=== PATIENT | male | born 1995 | race African-American/Black ===

== ENCOUNTER 2019-09-25 17:40 | Emergency (ER) | payer SELFPAY ==
[~2019-09-25] VITALS: Ht 188 cm; Wt 77.0 kg
[2019-09-25 17:55] VITALS: BP 125/80
== END 2019-09-25 18:50 | disposition left against medical advice (07) ==
LOC: ER 17:53
DX: F20.9 Schizophrenia, unspecified (principal); Z53.21 Procedure and treatment not carried out due to patient leaving prior to being seen by health care provider